=== PATIENT | male | born 2000 | race African-American/Black ===

== ENCOUNTER 2019-03-05 08:57 | Inpatient (IN) | payer BC ==
[~2019-03-05] VITALS: Ht 177.8 cm; Wt 76.3 kg
[2019-03-05 09:37] LABS: BASO % 0.3 % (0.0-2.0); EOS % 0.3 % (0-4.0); GRAN # 8.1 (1.4-6.5); GRAN % 80.8 % (42.2-75.2); HEMATOCRIT 48.1 % (36.0-47.0); HEMOGLOBIN 15.8 g/dl (12.5-16.1); LYMPH # 1.1 (1.2-3.4); LYMPH % 10.6 % (20.0-51.0); MEAN CELL VOLUME 88 fl (80.0-95.0); MEAN CORPUSCULAR HEMOGLOBIN 29 pg (26.0-32.0); MEAN CORPUSCULAR HGB CONC 33 g/dl (33.0-37.0); MEAN PLATELET VOLUME 9.5 fl (7.4-10.4); MONO # 0.7 (0.1-0.6); MONO % 7.2 % (1.7-9.3); PLATELET COUNT 343 K/mm3 (130-400); RED BLOOD COUNT 5.47 M/mm3 (4.20-5.60); REDCELL DISTRIBUTION WIDTH-CV 12.6 % (11.5-14.5)
[2019-03-05 09:52] LABS: BILIRUBIN,TOTAL 0.5 mg/dL (0.0-1.0); CALCIUM 10.6 mg/dL (8.4-10.2); TOTAL PROTEIN 9.2 gm/dL (6.4-8.2)
[2019-03-05 09:53] LABS: COLLECTION METHOD CLEAN CATCH
[2019-03-05 10:02] LABS: POTASSIUM 2.9 mmol/L (3.4-5.0)
[2019-03-05 10:17] LABS: MUCOUS Present /lpf; PH 5 (5-8); SQUAMOUS EPITHELIAL 0-2 /hpf; URINE APPEARANCE Hazy; URINE BACTERIA None Seen /hpf; URINE BILIRUBIN Negative (NEGATIVE); URINE BLOOD Negative (NEGATIVE); URINE COLOR Yellow; URINE GLUCOSE Negative (NEGATIVE); URINE KETONE Trace (NEGATIVE); URINE LEUKOCYTE ESTERASE Negative (NEGATIVE); URINE NITRATE Negative (NEGATIVE); URINE PROTEIN(semi-quant) 2+ (NEGATIVE); URINE RBC 0-2 /hpf; URINE UROBILINOGEN Negative (NEGATIVE)
[2019-03-05 14:09] LABS: CALCIUM 8.9 mg/dL (8.4-10.2); CREATININE, serum 0.84 (0.66-1.25); MAGNESIUM 1.8 mg/dL (1.6-2.3)
[2019-03-05 14:22] LABS: POTASSIUM 2.4 mmol/L (3.4-5.0)
[2019-03-05 15:20] VITALS: BP 129/50; TEMP 98.4
[2019-03-05] MEDS ORDERED: NATURAL POTASS595 MG PO (15:39)
--- NOTE | 2019-03-05 15:45 | NUR ---
Pt arrived into room 308 at this time. One assistance required for transfer from cot to bed. Pt is A/O x3. His breathing is even and unlabored on RA. Pt denies SOB. No pain at this time. Pt's BUE strong and WNL, BLE weak upon assessment. POC discussed with patient as well as diagnosis and treatment. Pt instruct given to patient, all questions answered at this time. No needs at this time. Call light within reach.
[2019-03-05] MEDS ORDERED: MULTI VITAMINS1 TAB PO (15:47)
[2019-03-05 16:48] LABS: CALCIUM 8.8 mg/dL (8.4-10.2); CREATININE, serum 0.75 (0.66-1.25); MAGNESIUM 1.8 mg/dL (1.6-2.3)
[2019-03-05 16:55] LABS: POTASSIUM 2.7 mmol/L (3.4-5.0)
[2019-03-05 19:19] VITALS: BP 124/54; PULSE 59; TEMP 98.3
--- NOTE | 2019-03-05 19:40 | NUR ---
Patient assessed at this time. Alert and oriented x 4, and able to make needs known. Denies having pain and discomfort. Continues on potassium replacement. Will get rechecked around 2240. IV site to right AC flushed. Site is without redness, warmth, swelling, and pain. LS CTA. Respirations even and unlabored. Denies SOB and dyspnea. Denies chest pain and discomfort. HRR. Telemetry in place. Capillary refill less than 3 seconds. Non-tenting skin turgor. BSAx4. Abdomen soft and non-tender. No edema. Weakness continues to BLE, but states he feels stronger than this morning. In bed with call light within reach.
--- NOTE | 2019-03-05 23:00 | NUR ---
Potassium level 4.3. No replacement needed at this time. Updated patient. Will recheck in the morning.
[2019-03-05 23:48] VITALS: BP 117/47; PULSE 67; TEMP 97.8
[2019-03-06 03:41] VITALS: BP 115/40; PULSE 53; TEMP 97.7
--- NOTE | 2019-03-06 04:44 | NUR ---
Patient has denied having pain and discomfort this shift. Decreased weakness to BLE. Voiced no questions, needs, or concerns at this time. Resting in bed with call light within reach.
[2019-03-06 05:57] LABS: BASO % 0.6 % (0.0-2.0); EOS # 0.3 (0.0-0.7); EOS % 3.9 % (0-4.0); GRAN # 2.8 (1.4-6.5); GRAN % 39.9 % (42.2-75.2); HEMATOCRIT 40.1 % (36.0-47.0); LYMPH # 3.4 (1.2-3.4); LYMPH % 47.4 % (20.0-51.0); MEAN CELL VOLUME 89 fl (80.0-95.0); MEAN CORPUSCULAR HEMOGLOBIN 29 pg (26.0-32.0); MEAN CORPUSCULAR HGB CONC 32 g/dl (33.0-37.0); MEAN PLATELET VOLUME 10.4 fl (7.4-10.4); MONO # 0.6 (0.1-0.6); MONO % 7.9 % (1.7-9.3); PLATELET COUNT 284 K/mm3 (130-400); RED BLOOD COUNT 4.52 M/mm3 (4.20-5.60); REDCELL DISTRIBUTION WIDTH-CV 12.8 % (11.5-14.5)
[2019-03-06 05:59] LABS: HEMOGLOBIN 12.9 g/dl (12.5-16.1)
[2019-03-06 06:10] LABS: ALBUMIN 3.8 gm/dL (3.5-5.0); BILIRUBIN,TOTAL 0.4 mg/dL (0.0-1.0); CALCIUM 9.2 mg/dL (8.4-10.2); CREATININE, serum 0.75 (0.66-1.25); MAGNESIUM 1.8 mg/dL (1.6-2.3); POTASSIUM 5.3 mmol/L (3.4-5.0); TOTAL PROTEIN 6.9 gm/dL (6.4-8.2)
[2019-03-06 08:05] VITALS: BP 119/57; PULSE 55; TEMP 97.5
--- NOTE | 2019-03-06 08:30 | NUR ---
Pt assessment complete. Pt is laying in bed upon entry, he is A/O x3. His breathing is even and unlabore on RA. Pt denies SOB. No pain reported at this time. Pt reports strength has increased, able to ambulate to the restroom a couple times during the night. No N/V. POC discussed with patient who verbalizes understanding. No needs at this time. Call light within reach.
--- NOTE | 2019-03-06 10:30 | NUR ---
SW attended clinical rounds to discuss discharge planning. 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 Patient does not have a local PCP but will set up with one for follow up after discharge. Patient reports his preferred pharmacy is [facility]. 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 No discharge needs.
--- NOTE | 2019-03-06 12:05 | NUR ---
Discharge paperwork and instructions reviewed with patient. All questions answered at this time. IV to RAC dc'd catheter tip intact. No needs at this time.
--- NOTE | 2019-03-06 12:21 | NUR ---
Pt walked out of facility at this time.
== END 2019-03-06 12:21 | disposition home or self-care (01) | DRG 641 ==
LOC: COL.ER 08:57 → MEDICAL 14:52
PROVIDERS: Emergency Medicine; Physician Assistant; ADMIT Student in an Organized Health Care Education/Training Program
DX: E87.6 Hypokalemia (principal); M62.82 Rhabdomyolysis; R79.89 Other specified abnormal findings of blood chemistry; G83.9 Paralytic syndrome, unspecified
CPT/HCPCS: 99222-AI; 99233-AI; 99239; J1650; J3480; J7030; J7120

== ENCOUNTER → 2019-03-13 | Outpatient (CLI) | payer BC ==
[~2019-03-13] MED LIST: MULTI VITAMINS1 TAB PO; NATURAL POTASS595 MG PO
[2019-03-13 18:04] LABS: ALBUMIN 4.4 gm/dL (3.5-5.0); BILIRUBIN,TOTAL 0.3 mg/dL (0.0-1.0); CALCIUM 9.7 mg/dL (8.4-10.2); CREATININE, serum 0.86 (0.66-1.25); POTASSIUM 4.9 mmol/L (3.4-5.0); TOTAL PROTEIN 7.9 gm/dL (6.4-8.2)
== END ==
LOC: ZCOL.LAB 16:08
PROVIDERS: Family Medicine
DX: E87.6 Hypokalemia (principal)

== ENCOUNTER → 2019-04-04 | Outpatient (CLI) | payer BC ==
[2019-04-04 17:32] LABS: ALBUMIN 4.3 gm/dL (3.5-5.0); BILIRUBIN,TOTAL 0.5 mg/dL (0.0-1.0); CALCIUM 9.7 mg/dL (8.4-10.2); CREATININE, serum 0.91 (0.66-1.25); POTASSIUM 4.7 mmol/L (3.4-5.0); TOTAL PROTEIN 7.8 gm/dL (6.4-8.2)
== END ==
LOC: ZCOL.LAB 16:41
PROVIDERS: Family Medicine
DX: G72.3 Periodic paralysis (principal); R74.8 Abnormal levels of other serum enzymes